=== PATIENT | male | born 1985 | race Two or more races ===

== ENCOUNTER 2021-10-22 11:55 | Emergency (ER) | payer BC, OTHER ==
[~2021-10-22] VITALS: Ht 177.8 cm; Wt 154.2 kg
[2021-10-22] MEDS ORDERED: FLUORESCEIN SOD OPTH TEST STRIP RIGHTEYE ONE (13:00)
[2021-10-22] MEDS ORDERED: TETRACAINE HCL 0.5% OPTH(EYE) SOLN 4ML RIGHTEYE ONE (13:00)
[2021-10-22 15:16] VITALS: BP 150/84
== END 2021-10-22 15:36 | disposition home or self-care (01) ==
LOC: ER 11:55
DX: T15.91XA Foreign body on external eye, part unspecified, right eye, initial encounter (principal); I10 Essential (primary) hypertension; X58.XXXA Exposure to other specified factors, initial encounter; Y93.89 Activity, other specified; Y92.89 Other specified places as the place of occurrence of the external cause; Y99.8 Other external cause status